=== PATIENT | male | born 1970 | race Caucasian/White ===

== ENCOUNTER 2019-01-27 12:33 | Emergency (ER) | payer OTHER ==
[~2019-01-27] VITALS: Ht 180.3 cm; Wt 113.4 kg
[~2019-01-27 12:33] MED LIST: BUSP10TA PO; HYDR-3164 PO; MIRT30TA PO; NAPR-514 PO; NAPR500T8 PO; OLAN10TA3 PO; ONDA4TAB7 PO; OXYC1TAB15 PO
[2019-01-27] MEDS ORDERED: fentaNYL PF VIAL 100 MCG/2 ML VIAL IV PRN (13:15)
--- NOTE | 2019-01-27 13:33 | RAD ---
Single view of the chest. 01/27/2019 1:15 PM Indication: Lower extremity edema Comparison: None Findings: Heart size is normal. No pneumothorax or pleural effusion is seen. No definitive focal consolidative infiltrate is seen. No overt edema is identified. Bony thorax is grossly intact. IMPRESSION: No radiographic evidence of acute cardiopulmonary process. Electronically signed by: Timothy Gong MD (01/27/2019 1:31 PM) [id number]
[2019-01-27 13:49] LABS: BASO # 0.1 x10^3/uL (0.0-0.2); BASO % 1 % (0-3); EOS # 0.3 x10^3/uL (0.0-0.7); EOS % 8 % (0-3); HEMATOCRIT 42.4 % (39.0-53.0); HEMOGLOBIN 14.9 g/dL (13.0-17.5); LYMPH # 1.5 x10^3/uL (1.0-4.8); LYMPH % 37 % (24-48); MEAN CORPUSCULAR HEMOGLOBIN 33 pg (25-35); MEAN CORPUSCULAR HGB CONC 35 g/dL (31-37); MEAN CORPUSCULAR VOLUME 95 fL (79-100); MONO # 0.3 x10^3/uL (0.0-1.1); MONO % 8 % (0-9); NEUT # 1.9 x10^3/uL (1.8-7.7); NEUT % 46 % (31-73); PLATELET COUNT 92 x10^3/uL (140-400); RED BLOOD COUNT 4.45 x10^6/uL (4.30-5.70); RED CELL DISTRIBUTION WIDTH 13.3 % (11.5-14.5); WHITE BLOOD COUNT 4.1 x10^3/uL (4.0-11.0)
[2019-01-27 13:57] LABS: CALCIUM 8.9 mg/dL (8.5-10.1); CREATININE 0.9 mg/dL (0.7-1.3); GFR 90.1; POTASSIUM 4.3 mmol/L (3.5-5.1)
[2019-01-27 14:03] LABS: ALBUMIN 3.6 g/dL (3.4-5.0); ALBUMIN/GLOBULIN RATIO 0.9 (1.0-1.7); MAGNESIUM 1.8 mg/dL (1.8-2.4); TOTAL PROTEIN 7.5 g/dL (6.4-8.2)
[2019-01-27] MEDS ORDERED: IOHEXOL 300 MG/ML 100ML VIAL. IV ONE (14:15)
[2019-01-27] MEDS ORDERED: CONTRAST GIVEN. MC PRN (14:15)
--- NOTE | 2019-01-27 14:20 | EKG ---
[facility] [address] [place] [address] Test Date: 2019-01-27 Test Time: 13:30:33 Pat Name: SONDRA COLON Department: Room: Gender: M Emd Teacher: : 1970 Requested By: RAMESH MESSINA Order Number: [id number] Reading MD: Measurements Intervals [place] Rate: 76 P: 38 VA: 174 QRS: -27 QRSD: 102 T: 17 QT: 390 QTc: 443 Interpretive Statements SINUS RHYTHM LEFTWARD AXIS NO SPECIFIC ECG ABNORMALITIES RI6.01 Unconfirmed report No previous ECG available for comparison
[2019-01-27 14:21] LABS: CREATINE KINASE 52 U/L (39-308)
--- NOTE | 2019-01-27 15:12 | RAD ---
Examination: CT ABD PELV W/ IV CONTRST ONLY History: Abdominal distention, liver disease Comparison/Correlation: 04/08/2016 CT abdomen and pelvis without contrast Findings: Axial images of the abdomen and pelvis were obtained following IV contrast. Sagittal and coronal reformatted images were provided. Bibasilar linear atelectasis is present. Nodular contour of the liver is present. Splenic length is 17.3 cm. Contrast noted within an umbilical vein. Minimal epigastric level varices. Pancreas is unremarkable. Adrenal glands are normal. Kidneys are unremarkable. Gallbladder fossa is unremarkable. Suture material is evident about cecum. Appendix is not seen. No bowel obstruction. No enlarged abdominal or pelvic lymph nodes. No ascites or pelvic free fluid. Urinary bladder is unremarkable. Transitional L5 vertebra is present. Impression: Hepatic cirrhosis and associated findings of portal hypertension including splenomegaly, recanalized umbilical vein, and epigastric level varices. PQRS Compliance Statement: One or more of the following individualized dose reduction techniques were utilized for this examination: 1. Automated exposure control 2. Adjustment of the mA and/or kV according to patient size 3. Use of iterative reconstruction technique Electronically signed by: Gerber Gregg MD (01/27/2019 3:09 PM) [facility]
[2019-01-27] MEDS ORDERED: MORPHINE SULFATE 4 MG/ML VIAL. IV ONE ×2 (15:15→17:15)
[2019-01-27 17:23] LABS: PROTHROMBIN TIME PATIENT 13.4 SEC (11.7-14.0)
[2019-01-27 17:23] LABS: BILIRUBIN,URINE NEGATIVE (NEG); CLARITY,URINE CLEAR; COLOR,URINE YELLOW; NITRITE,URINE NEGATIVE (NEG); PROTEIN,URINE NEGATIVE (NEG-TRACE)
[2019-01-27 17:31] LABS: AMPHETAMINE/METHAMPHETAMINE NEG (NEG); BARBITURATES NEG (NEG); BENZODIAZEPINES NEG (NEG); CANNABINOIDS NEG (NEG); COCAINE NEG (NEG); METHADONE NEG (NEG); OPIATES POS (NEG); PHENCYCLIDINE NEG (NEG)
[2019-01-27 17:33] LABS: BACTERIA,URINE 0 /HPF (0-FEW); SQUAMOUS EPITHELIAL CELL,UR FEW /LPF
[2019-01-27 17:59] VITALS: BP 114/59
[2019-01-27] MEDS ORDERED: LACTULOSE 20 GM/30 ML SOLUTION. PO STA (18:00)
--- NOTE | 2019-01-27 18:00 | PHYS DOC ---
Past Medical History Past Medical History: Bipolar, Liver Disease, Schizophrenia, Other Additional Past Medical Histor: PTDS, Hep C (RAMESH MESSINA APRN) Past Surgical History: Appendectomy (RAMESH MESSINA APRN) Alcohol Use: Sober Drug Use: Heroin Social History Narrative: pt reports hx/o heroin use "a long time ago" (RAMESH MESSINA APRN) Adult General Chief Complaint Chief Complaint: LOWER EXTREMITY SWELLING HPI HPI Patient is a 48 year old male with history of bipolar, schizophrenia, stage IV liver cirrhosis, who presents to the ED today complaining of 7 out of 10 bilateral lower abdominal pain, abdominal distention bilateral lower extremity swelling, patient states this a chronic symptoms but he believes they've gotten worse in the last 2 days. He states he recently moved here from [place] and does not have a specialist to follow-up with. He also mentions his some sort of house arrest. Patient denies any nausea, vomiting, denies any chest pain or shortness of breath. (RAMESH MESSINA APRN) Review of Systems Review of Systems Constitutional: Denies fever or chills [] Eyes: Denies change in visual acuity, redness, or eye pain [] HENT: Denies nasal congestion or sore throat [] Respiratory: Denies cough or shortness of breath [] Cardiovascular: No additional information not addressed in HPI [] GI: Reports abdominal pain, abdominal distention, denies nausea, vomiting, bloody stools or diarrhea [] : Denies dysuria or hematuria [] Musculoskeletal: Reports bilateral lower extremity swelling. Denies back pain or joint pain [] Integument: Denies rash or skin lesions [] Neurologic: Denies headache, focal weakness or sensory changes [] All other systems were reviewed and found to be within normal limits, except as documented in this note. (RAMESH MESSINA APRN) Current Medications Current Medications Current Medications Medications (Trade) Dose Ordered Sig/Valeriano Start Time Stop Time Status Last Admin Dose Admin Fentanyl Citrate (Fentanyl 2ml Vial) 50 mcg PRN Q15MIN PRN 01/27/19 13:15 01/27/19 18:31 DC 01/27/19 13:55 50 MCG Info (CONTRAST GIVEN -- Rx MONITORING) 1 each PRN DAILY PRN 01/27/19 14:15 01/27/19 18:31 DC Iohexol (Omnipaque 300 Mg/ml) 75 ml 1X ONCE 01/27/19 14:15 01/27/19 14:16 DC 01/27/19 14:56 75 ML Lactulose (Lactulose) 20 gm 1X STAT 01/27/19 18:00 01/27/19 18:02 DC 01/27/19 18:20 20 GM Morphine Sulfate (Morphine Sulfate) 4 mg 1X ONCE 01/27/19 17:15 01/27/19 17:16 DC 01/27/19 17:28 4 MG (RYAN JENNINGS MD) Allergies Allergies Allergies Coded Allergies Type Severity Reaction Last Updated Verified Penicillins Allergy Intermediate unknown 02/18/15 Yes (RYNA JENNINGS MD) Physical Exam Physical Exam Constitutional: Well developed, well nourished, no acute distress, non-toxic appearance. [] HENT: Normocephalic, atraumatic, bilateral external ears normal, oropharynx moist, no oral exudates, nose normal. [] Eyes: PERRLA, EOMI, conjunctiva normal, no discharge. [] Neck: Normal range of motion, no tenderness, supple, no stridor. [] Cardiovascular:Heart rate regular rhythm, no murmur [] Lungs & Thorax: Bilateral breath sounds clear to auscultation [] Abdomen: Rounded abdomen. Bowel sounds normal, soft, diffuse tenderness throughout the abdomen, no point tenderness to the right upper quadrant or right lower quadrant, no masses, no pulsatile masses. [] Skin: Warm, dry, no erythema, no rash. [] Back: No tenderness, no CVA tenderness. [] Extremities: No tenderness, no cyanosis, no clubbing, ROM intact, +2 bilateral pedal edema,police ankle bracelet noted on the left Neurologic: Alert and oriented X 3, normal motor function, normal sensory function, no focal deficits noted. [] Psychologic: Affect normal, judgement normal, mood normal. [] (RAMESH MESSINA APRN) Current Patient Data Vital Signs Vital Signs Date Time Temp Pulse Resp B/P (MAP) Pulse Ox O2 Delivery O2 Flow Rate FiO2 01/27/19 17:59 74 14 114/59 (77) 95 Room Air 01/27/19 13:10 97.9 97.9 (RYAN JENNINGS MD) Lab Values Laboratory Tests Test 01/27/19 13:30 01/27/19 17:10 White Blood Count 4.1 x10^3/uL (4.0-11.0) Red Blood Count 4.45 x10^6/uL (4.30-5.70) Hemoglobin 14.9 g/dL (13.0-17.5) Hematocrit 42.4 % (39.0-53.0) Mean Corpuscular Volume 95 fL (79-100) Mean Corpuscular Hemoglobin 33 pg (25-35) Mean Corpuscular Hemoglobin Concent 35 g/dL (31-37) Red Cell Distribution Width 13.3 % (11.5-14.5) Platelet Count 92 x10^3/uL (140-400) L Neutrophils (%) (Auto) 46 % (31-73) Lymphocytes (%) (Auto) 37 % (24-48) Monocytes (%) (Auto) 8 % (0-9) Eosinophils (%) (Auto) 8 % (0-3) H Basophils (%) (Auto) 1 % (0-3) Neutrophils # (Auto) 1.9 x10^3/uL (1.8-7.7) Lymphocytes # (Auto) 1.5 x10^3/uL (1.0-4.8) Monocytes # (Auto) 0.3 x10^3/uL (0.0-1.1) Eosinophils # (Auto) 0.3 x10^3/uL (0.0-0.7) Basophils # (Auto) 0.1 x10^3/uL (0.0-0.2) Prothrombin Time 13.4 SEC (11.7-14.0) Prothrombin Time INR 1.1 (0.8-1.1) Sodium Level 143 mmol/L (136-145) Potassium Level 4.3 mmol/L (3.5-5.1) Chloride Level 108 mmol/L (98-107) H Carbon Dioxide Level 26 mmol/L (21-32) Anion Gap 9 (6-14) Blood Urea Nitrogen 18 mg/dL (8-26) Creatinine 0.9 mg/dL (0.7-1.3) Estimated GFR (Cockcroft-Gault) 90.1 BUN/Creatinine Ratio 20 (6-20) Glucose Level 98 mg/dL (70-99) Calcium Level 8.9 mg/dL (8.5-10.1) Magnesium Level 1.8 mg/dL (1.8-2.4) Total Bilirubin 1.0 mg/dL (0.2-1.0) Aspartate Amino Transferase (AST) 76 U/L (15-37) H Alanine Aminotransferase (ALT) 111 U/L (16-63) H Alkaline Phosphatase 142 U/L (46-116) H Ammonia 38 mcmol/L (11-34) H Creatine Kinase 52 U/L (39-308) Creatine Kinase MB (Mass) < 0.5 ng/mL (0.0-3.6) Creatine Kinase MB Relative Index % (0-4) Troponin I Quantitative < 0.017 ng/mL (0.000-0.055) TP-Dge-F-Type Natriuretic Peptide 31 pg/mL (0-124) Total Protein 7.5 g/dL (6.4-8.2) Albumin 3.6 g/dL (3.4-5.0) Albumin/Globulin Ratio 0.9 (1.0-1.7) L Lipase 503 U/L (73-393) H Ethyl Alcohol Level < 10 mg/dL (0-10) Urine Collection Type Unknown Urine Color Yellow Urine Clarity Clear Urine pH 6.0 Urine Specific [place] >=1.030 Urine Protein Negative mg/dL (NEG-TRACE) Urine Glucose (UA) Negative mg/dL (NEG) Urine Ketones (Stick) Negative mg/dL (NEG) Urine Blood Negative (NEG) Urine Nitrite Negative (NEG) Urine Bilirubin Negative (NEG) Urine Urobilinogen Dipstick 1.0 mg/dL (0.2 mg/dL) Urine Leukocyte Esterase Negative (NEG) Urine RBC 1-2 /HPF (0-2) Urine WBC 1-4 /HPF (0-4) Urine Squamous Epithelial Cells Few /LPF Urine Bacteria 0 /HPF (0-FEW) Urine Mucus Mod /LPF Urine Opiates Screen Pos (NEG) Urine Methadone Screen Neg (NEG) Urine Barbiturates Neg (NEG) Urine Phencyclidine Screen Neg (NEG) Urine Amphetamine/Methamphetamine Neg (NEG) Urine Benzodiazepines Screen Neg (NEG) Urine Cocaine Screen Neg (NEG) Urine Cannabinoids Screen Neg (NEG) Urine Ethyl Alcohol Neg (NEG) Laboratory Tests 01/27/19 13:30 Laboratory Tests 01/27/19 13:30 (RYAN JENNINGS MD) EKG EKG [address] Marroquin sinus rhythm HR 76 no STEMI[] (RAMESH MESSINA APRN) Radiology/Procedures Radiology/Procedures []PROCEDURE: CT ABD PELV W/ IV CONTRST ONLY Examination: CT ABD PELV W/ IV CONTRST ONLY History: Abdominal distention, liver disease Comparison/Correlation: 04/08/2016 CT abdomen and pelvis without contrast Findings: Axial images of the abdomen and pelvis were obtained following IV contrast. Sagittal and coronal reformatted images were provided. Bibasilar linear atelectasis is present. Nodular contour of the liver is present. Splenic length is 17.3 cm. Contrast noted within an umbilical vein. Minimal epigastric level varices. Pancreas is unremarkable. Adrenal glands are normal. Kidneys are unremarkable. Gallbladder fossa is unremarkable. Suture material is evident about cecum. Appendix is not seen. No bowel obstruction. No enlarged abdominal or pelvic lymph nodes. No ascites or pelvic free fluid. Urinary bladder is unremarkable. Transitional L5 vertebra is present. Impression: Hepatic cirrhosis and associated findings of portal hypertension including splenomegaly, recanalized umbilical vein, and epigastric level varices. PQRS Compliance Statement: One or more of the following individualized dose reduction techniques were utilized for this examination: 1. Automated exposure control 2. Adjustment of the mA and/or kV according to patient size 3. Use of iterative reconstruction technique Electronically signed by: Gerber Sanchez MD (01/27/2019 3:09 PM) [facility] DICTATED and SIGNED BY: GERBER SANCHEZ MD DATE: 01/27/19 1509 (RAMESH MESSINA APRN) Course & Med Decision Making Course & Med Decision Making Pertinent Labs and Imaging studies reviewed. (See chart for details) This is a 48-year-old male patient with history of stage IV liver cirrhosis who presents to the ED today complaining of abdominal pain and bilateral lower extr emity swelling that is chronic but he believes got worse in the last 2 days. CBC with a normal WBC, CMP with AST of 76, ALT 111, ammonia 38-given lactulose, lipase 503. INR is normal. CT of the abdomen and pelvic-Hepatic cirrhosis and associated findings of portal hypertension including splenomegaly, recanalized umbilical vein, and epigastric level varices. spoke with Dr. Mendez who requested we discharge patient to home and have him follow-up with Dr. Cheryl Lou as a PCP as well as Dr. Sandeep WILLIS (RAMESH MESSINA APRN) Course & Med Decision Making I was not involved in the care of this patient before 1800. (RYAN JENNINGS MD) Dragon Disclaimer Dragon Disclaimer This electronic medical record was generated, in whole or in part, using a voice recognition dictation system. (RAMESH MESSINA APRN) Departure Departure Impression: Primary Impression: Liver cirrhosis Disposition: HOME, SELF-CARE Condition: STABLE Referrals: NO PCP (PCP) ISAIAH COLLAZO MD follow up as soon as you can SABA PIERRE MD follow up as soon as you can Patient Instructions: Cirrhosis Additional Instructions: You were evaluated in the emergency room for abdominal pain with liver cirrhosis we provided you a primary care doctor as well as a GI doctor please call them and follow-up with them as soon as possible. Problem Qualifiers Primary Impression: Liver cirrhosis Hepatic cirrhosis type: other cirrhosis Qualified Codes: K74.69 - Other cirrhosis of liver RAMESH MESSINA APRN Jan 27, 2019 18:00 RYAN JENNINGS MD Jan 27, 2019 20:08
== END 2019-01-27 18:25 | disposition home or self-care (01) ==
LOC: ER 12:33
DX: K74.69 Other cirrhosis of liver (principal); F31.9 Bipolar disorder, unspecified; F20.9 Schizophrenia, unspecified; Z90.89 Acquired absence of other organs; Z88.0 Allergy status to penicillin
CPT/HCPCS: 36415; 71045; 74177; 80053; 80307; 81001; 82140; 82553; 83690; 83735; 83880; 84484; 85025; 85610; 93005; 96374; 96375; 96376; 99285; G0480; J2270; J3010; Q9967

== ENCOUNTER 2019-11-18 14:02 | Inpatient (IN) | payer OTHER, SELFPAY ==
[~2019-11-18] VITALS: Ht 180.3 cm; Wt 99.7 kg
--- NOTE | 2019-11-18 14:49 | EKG ---
[facility] [address] [place] [address] Test Date: 2019-11-18 Test Time: 14:36:12 Pat Name: SONDRA COLON Department: Room: Gender: M Training Engineer: : 1970 Requested By: LEONA WALTERS Order Number: [id number] Reading MD: Omid Ibrahim MD Measurements Intervals [place] Rate: 91 P: 27 CA: 158 QRS: -25 QRSD: 98 T: 17 QT: 372 QTc: 459 Interpretive Statements SINUS RHYTHM Electronically Signed On 11-18-2019 15:02:04 CDT by Omid Ibrahim MD
[2019-11-18 14:52] LABS: BASO % 1 % (0-3); EOS # 0.1 x10^3/uL (0.0-0.7); EOS % 3 % (0-3); HEMATOCRIT 43.4 % (39.0-53.0); HEMOGLOBIN 14.8 g/dL (13.0-17.5); LYMPH % 31 % (24-48); MEAN CORPUSCULAR HEMOGLOBIN 34 pg (25-35); MEAN CORPUSCULAR HGB CONC 34 g/dL (31-37); MEAN CORPUSCULAR VOLUME 98 fL (79-100); MONO # 0.4 x10^3/uL (0.0-1.1); MONO % 11 % (0-9); NEUT # 1.8 x10^3/uL (1.8-7.7); NEUT % 54 % (31-73); PLATELET COUNT 80 x10^3/uL (140-400); RED BLOOD COUNT 4.42 x10^6/uL (4.30-5.70); RED CELL DISTRIBUTION WIDTH 15.2 % (11.5-14.5); WHITE BLOOD COUNT 3.3 x10^3/uL (4.0-11.0)
[2019-11-18 14:58] LABS: CALCIUM 8.8 mg/dL (8.5-10.1); CREATININE 0.8 mg/dL (0.7-1.3); GFR 102.7; POTASSIUM 3.8 mmol/L (3.5-5.1)
[2019-11-18 15:04] LABS: ACETAMIN < 2 mcg/ml (10-30); ETHANOL < 10 mg/dL (0-10)
[2019-11-18 15:06] LABS: BARBITURATES NEG (NEG); BENZODIAZEPINES NEG (NEG); CANNABINOIDS POS (NEG); COCAINE NEG (NEG); METHADONE NEG (NEG); OPIATES NEG (NEG); PHENCYCLIDINE NEG (NEG)
[2019-11-18 15:09] LABS: ALBUMIN 3.4 g/dL (3.4-5.0); ALBUMIN/GLOBULIN RATIO 0.9 (1.0-1.7); MAGNESIUM 1.7 mg/dL (1.8-2.4); TOTAL BILIRUBIN 0.8 mg/dL (0.2-1.0); TOTAL PROTEIN 7.1 g/dL (6.4-8.2)
[2019-11-18 15:13] LABS: AMPHETAMINE/METHAMPHETAMINE NEG (NEG)
--- NOTE | 2019-11-18 15:42 | RAD ---
WRIST 3V LEFT DATE: 11/18/2019 3:20 PM INDICATION: Reason: left wrist pain, fell off bed of truck, already splinted / Spl. Instructions: / History: COMPARISON: None. FINDINGS: Bones: Acute impacted distal radius fracture with dorsal angulation. Acute mildly displaced ulnar styloid fracture. Joints: The joint spaces are normal. Miscellaneous: Soft tissue swelling is present. IMPRESSION: Acute distal radius and ulnar styloid fractures. Electronically signed by: Da Barclay MD (11/18/2019 3:39 PM) [id number]
--- NOTE | 2019-11-18 16:20 | PHYS DOC ---
Past Medical History Past Medical History: Bipolar, Liver Disease, Schizophrenia, Other Additional Past Medical Histor: PTSD, Hep C Past Surgical History: Appendectomy Smoking Status: Current Some Day Smoker Alcohol Use: Sober Drug Use: Heroin Adult General Chief Complaint Chief Complaint: SUICDAL IDEATION HPI HPI Patient is a 49 year old male with history of chronic psychosis and polysubstance abuse who presents with multiple medical complaints. Patient is requesting reevaluation of left hand splint. Patient reports injury with left wrist fracture 1 week ago while visiting [place]. Patient reports continued left wrist pain and swelling. Denies weakness or numbness of left hand. No chest pain or shortness of breath. Patient also reports chronic hallucinations and suicidal ideation. Patient denies active plans at this time. Denies command hallucinations. No HI, paranoia or delusions. No other acute symptoms or complaints. Patient is currently homeless and living outdoors. Reports recent marijuana use while in [place]. [] Review of Systems Review of Systems ROS as per HPI All other systems were reviewed and found to be within normal limits, except as documented in this note. Current Medications Current Medications Current Medications Medications (Trade) Dose Ordered Sig/Valeriano Start Time Stop Time Status Last Admin Dose Admin Acetaminophen/ Hydrocodone Bitart (Lortab 5/325) 1 tab 1X ONCE 11/18/19 17:15 11/18/19 17:16 DC 11/18/19 17:22 1 TAB Allergies Allergies Allergies Coded Allergies Type Severity Reaction Last Updated Verified Penicillins Allergy Intermediate unknown 02/18/15 Yes Physical Exam Physical Exam Constitutional: Well developed, well nourished, no acute distress, non-toxic appearance. [] HENT: Normocephalic, atraumatic, bilateral external ears normal, oropharynx moist, nose normal. [] Eyes: PERRLA, EOMI, conjunctiva normal, no discharge. [] Neck: Normal range of motion, no tenderness, supple, no stridor. [] Cardiovascular:Heart rate regular rhythm, no murmur [] Lungs & Thorax: Bilateral breath sounds clear to auscultation [] Extremities: Left forearm, loosely fitting sugar tong splint with minimal swelling of hand, good cap refill, motor function intact. [] Neurologic: Alert and oriented X 3, normal motor function, normal sensory fun ction, no focal deficits noted. [] Psychologic: Affect normal, judgement normal, mood normal. [] Current Patient Data Vital Signs Vital Signs Date Time Temp Pulse Resp B/P (MAP) Pulse Ox O2 Delivery O2 Flow Rate FiO2 11/18/19 17:22 Room Air 11/18/19 14:06 97.9 88 18 148/82 (104) 100 97.9 Lab Values Laboratory Tests Test 11/18/19 14:40 11/18/19 14:46 White Blood Count 3.3 x10^3/uL (4.0-11.0) L Red Blood Count 4.42 x10^6/uL (4.30-5.70) Hemoglobin 14.8 g/dL (13.0-17.5) Hematocrit 43.4 % (39.0-53.0) Mean Corpuscular Volume 98 fL (79-100) Mean Corpuscular Hemoglobin 34 pg (25-35) Mean Corpuscular Hemoglobin Concent 34 g/dL (31-37) Red Cell Distribution Width 15.2 % (11.5-14.5) H Platelet Count 80 x10^3/uL (140-400) L Neutrophils (%) (Auto) 54 % (31-73) Lymphocytes (%) (Auto) 31 % (24-48) Monocytes (%) (Auto) 11 % (0-9) H Eosinophils (%) (Auto) 3 % (0-3) Basophils (%) (Auto) 1 % (0-3) Neutrophils # (Auto) 1.8 x10^3/uL (1.8-7.7) Lymphocytes # (Auto) 1.0 x10^3/uL (1.0-4.8) Monocytes # (Auto) 0.4 x10^3/uL (0.0-1.1) Eosinophils # (Auto) 0.1 x10^3/uL (0.0-0.7) Basophils # (Auto) 0.0 x10^3/uL (0.0-0.2) Sodium Level 146 mmol/L (136-145) H Potassium Level 3.8 mmol/L (3.5-5.1) Chloride Level 108 mmol/L (98-107) H Carbon Dioxide Level 31 mmol/L (21-32) Anion Gap 7 (6-14) Blood Urea Nitrogen 8 mg/dL (8-26) Creatinine 0.8 mg/dL (0.7-1.3) Estimated GFR (Cockcroft-Gault) 102.7 BUN/Creatinine Ratio 10 (6-20) Glucose Level 112 mg/dL (70-99) H Calcium Level 8.8 mg/dL (8.5-10.1) Magnesium Level 1.7 mg/dL (1.8-2.4) L Total Bilirubin 0.8 mg/dL (0.2-1.0) Aspartate Amino Transferase (AST) 44 U/L (15-37) H Alanine Aminotransferase (ALT) 48 U/L (16-63) Alkaline Phosphatase 145 U/L (46-116) H Total Protein 7.1 g/dL (6.4-8.2) Albumin 3.4 g/dL (3.4-5.0) Albumin/Globulin Ratio 0.9 (1.0-1.7) L Acetaminophen Level < 2 mcg/ml (10-30) L Acetaminophen Last Dose Date Unk Acetaminophen Last Dose Time Unk Ethyl Alcohol Level < 10 mg/dL (0-10) Urine Opiates Screen Neg (NEG) Urine Methadone Screen Neg (NEG) Urine Barbiturates Neg (NEG) Urine Phencyclidine Screen Neg (NEG) Urine Amphetamine/Methamphetamine Neg (NEG) Urine Benzodiazepines Screen Neg (NEG) Urine Cocaine Screen Neg (NEG) Urine Cannabinoids Screen Pos (NEG) Urine Ethyl Alcohol Neg (NEG) Laboratory Tests 11/18/19 14:40 Laboratory Tests 11/18/19 14:40 EKG EKG EKG: reviewed[] Radiology/Procedures Radiology/Procedures XR left hand: Distal radial and ulnar fractures per radiology report.[] Course & Med Decision Making Course & Med Decision Making Pertinent Labs and Imaging studies reviewed. (See chart for details) Wrist adequately splinted with wrist pain due to continued wrist/hand use. PAT counselor consulted. Care endorsed to oncoming [facility] at 18:00.] Dragon Disclaimer Dragon Disclaimer This electronic medical record was generated, in whole or in part, using a voice recognition dictation system. Departure Departure Impression: Primary Impression: Left wrist pain Additional Impression: Chronic psychosis Disposition: HOME, SELF-CARE Condition: STABLE Referrals: NO PCP (PCP) Problem Qualifiers LEONA WALTERS DO November 18, 2019 16:19
[2019-11-18] MEDS ORDERED: HYDROcodone/APAP 5/325MG 1 TAB TABLET PO ONE (17:15)
[2019-11-18] MEDS ORDERED: ACETAMINOPHEN 325 MG TABLET. PO PRN (18:30)
[2019-11-18 21:00] VITALS: BP 128/76
[2019-11-18] MEDS ORDERED: HYDROcodone/APAP 5/325MG 1 TAB TABLET PO PRN (21:45)
[2019-11-18] MEDS ORDERED: MORPHINE SULFATE 4 MG/ML VIAL. IV PRN (21:45)
[2019-11-18 22:00] VITALS: BP_SYST 128; BP_SYST 129; BP_DIAS 76
[2019-11-18] MEDS: MORPHINE SULFATE 2 MG/ML VIAL. IV PRN (22:04)
[2019-11-18] MEDS ORDERED: CLON1TAB PO (22:23)
[2019-11-18] MEDS ORDERED: QUET400T4 PO (22:23)
[2019-11-18 23:00] VITALS: BP 111/76
[2019-11-19] VITALS (15 sets, daily range): BP systolic 95–138; BP diastolic 58–84
[2019-11-19] MEDS: MORPHINE SULFATE 2 MG/ML VIAL. IV PRN ×5 (01:30→15:23)
--- NOTE | 2019-11-19 07:09 | NUR ---
IP: Pt is COVID negative.
--- NOTE | 2019-11-19 09:09 | SNU/HH DC ---
DISCHARGE ORDERS DISCHARGE INFORMATION: FINAL DIAGNOSIS Problems Medical Problems: (1) Chronic psychosis Status: Acute (2) Left wrist pain Status: Acute CONDITION ON DISCHARGE: Stable CODE STATUS: Code Status: Full CARE HOME: SNF STAY <30 DAYS: No HOSPICE: HOSPICE: No HOSPICE EVAL & TREAT: No LTAC: ADMIT TO LTAC: No POST DISCHARGE ORDERS: ACTIVITY ORDERS: Resume previous activity DIET AFTER DISCHARGE: Cardiac DISCHARGE MEDICATIONS: Home Meds Active Scripts Naproxen (NAPROXEN) 500 Mg Tablet.dr, 1 TAB PO BID, #60 TAB 2 Refills Prov:RAMESH MESSINA [employer] 06/17/16 Oxycodone/Apap 5-325 (PERCOCET 5-325 MG TABLET ) 1 Each Tablet, 1 TAB PO Q6HRS PRN for PAIN, #6 TAB Prov:RAMESH MESSINA [employer] 06/17/16 Hydrocodone/Apap 5-325 (NORCO 5-325 TABLET) 1 Each Tablet, 1 TAB PO PRN Q6HRS PRN for PAIN, #10 TAB Prov:ISAIAH ROY DO 06/05/16 Ondansetron Hcl (ZOFRAN) 4 Mg Tablet, 1 TAB PO Q8HRS PRN for NAUSEA, #20 TAB Prov:ARCELIA ANDERS DO 04/08/16 Hydrocodone/Apap 5-325 (NORCO 5-325 TABLET) 1 Each Tablet, 1 TAB PO PRN Q6HRS PRN for PAIN, #14 TAB Prov:ARCELIA ANDERS DO 04/08/16 Naproxen (NAPROXEN) 500 Mg Tablet, 1 TAB PO BID, #20 TAB 1 Refill Prov:ARCELIA ANDERS DO 11/24/15 Reported Medications Clonazepam (KLONOPIN) 1 Mg Tablet, 1 TAB PO TID PRN for ANXIETY / AGITATION, #90 TAB 1 Refill 11/18/19 Quetiapine Fumarate (SEROQUEL) 400 Mg Tablet, 1 TAB PO QHS for depressio/bipolar, #30 TAB 1 Refill 11/18/19 Olanzapine (ZYPREXA) 10 Mg Tablet, 10 MG PO DAILY, TAB 02/18/15 Buspirone Hcl (BUSPIRONE HCL) 10 Mg Tablet, 10 MG PO BID, TAB 02/18/15 Mirtazapine (REMERON) 30 Mg Tablet, 30 MG PO DAILY, TAB 02/18/15 JULIET HILL III DO November 19, 2019 09:09
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
--- NOTE | 2019-11-19 14:39 | NUR ---
Spoke to [place] at [facility] regarding patients acceptance. report to be called to [phone] with eta when known. Dr. Freeman is accepting and room will be 24A.
--- NOTE | 2019-11-19 15:13 | NUR ---
SS following up with discharge planning. Joe from PAT team met with pt for SI. Referral phoned and faxed to [facility]. Pt accepted at [facility] for psych. Report#[phone]. Room 24A. Accepting physician Dr. Saavedra. [facility] transport contacted and transport scheduled for 1530. Pt's RN notified. Packet and [facility] form on chart.
--- NOTE | 2019-11-19 16:58 | NUR ---
REPORT CALLED TO [phone] ON THE PT AT APPROX 1530 FOR ETA AFTER 1700 IN [place].
--- NOTE | 2019-11-19 17:03 | NUR ---
PT LEFT VIA [facility] AT APPROX 1600 AND SECURITY RETURNED PTS BELONGINGS PRIOR TO DISCHARGE.
--- NOTE | 2019-11-20 13:49 | DS ---
DATE OF DISCHARGE: 11/19/2019 ADMISSION DIAGNOSIS: Suicidal ideation. DISCHARGE DIAGNOSIS: Resolving suicidal ideation. HOSPITAL COURSE: The patient is a pleasant 49-year-old male, who presented with suicidal ideation. We observed him for a day or two due to COVID test and then discharged to Inpatient Psych. DISPOSITION: Inpatient Psych. ACTIVITY: As tolerated. DIET: Low sodium. MEDICATIONS: Please see the MRAD. TOTAL TIME: 32 minutes. JULIET HILL DO DR: FATOU/corinne JOB#: [id number] / [id number]
== END 2019-11-19 16:00 | DRG 556 ==
LOC: ER 14:02 → ED HOLD 18:20 → 1 WEST ICU 20:55
PROVIDERS: ADMIT Internal Medicine; ATTEND Internal Medicine
DX: M25.532 Pain in left wrist (principal); R45.851 Suicidal ideations; F29 Unspecified psychosis not due to a substance or known physiological condition; F31.9 Bipolar disorder, unspecified; F20.9 Schizophrenia, unspecified; F17.200 Nicotine dependence, unspecified, uncomplicated; F43.10 Post-traumatic stress disorder, unspecified; Z20.828 Contact with and (suspected) exposure to other viral communicable diseases; Z59.0 Homelessness; Z82.49 Family history of ischemic heart disease and other diseases of the circulatory system; Z90.49 Acquired absence of other specified parts of digestive tract
CPT/HCPCS: 29125; 36415; 73110; 80053; 80307; 80329; 83735; 85025; 93005; G0480; J2270; 99285-25; G0378; U0003-CS

== ENCOUNTER 2020-01-06 14:33 | Emergency (ER) | payer OTHER, SELFPAY ==
[~2020-01-06] VITALS: Ht 180.3 cm; Wt 106.3 kg
[~2020-01-06 14:33] MED LIST changes: +CLON1TAB PO; +QUET400T4 PO
[2020-01-06 15:02] VITALS: BP 135/74
--- NOTE | 2020-01-06 15:43 | RAD ---
EXAM: 1. PA and lateral views of the left hand 2. PA and lateral views of the left wrist DATE: 01/06/2020 3:11 PM INDICATION: Reason: LEFT HAND/WRIST INJURY / Spl. Instructions: / History: COMPARISON: 06/17/2016, 11/18/2019 FINDINGS/ IMPRESSION: 1. Progressively healing distal left radial fracture is stable in alignment with dorsal radial tilt. 2. Ulnar styloid avulsion fracture is unchanged. 3. No definite new fracture is seen. 4. Decreased bone mineral density. Electronically signed by: Cash De La Rosa MD (01/06/2020 3:40 PM) [id number]
[2020-01-06] MEDS ORDERED: oxyCODONE/APAP 5/325 1 TAB TABLET PO ONE (16:00)
[2020-01-06] MEDS ORDERED: HYDR-2759 PO (16:40)
--- NOTE | 2020-01-06 16:41 | PHYS DOC ---
Past Medical History Past Medical History: Bipolar, Liver Disease, Schizophrenia, Other Additional Past Medical Histor: PTSD, Hep C (BABAR MOLINA APRN) Past Surgical History: Appendectomy (BABAR MOLINA APRN) Smoking Status: Current Some Day Smoker Alcohol Use: Sober Drug Use: Heroin (BABAR MOLINA APRN) General Adult EDM: Chief Complaint: WRIST PAIN HPI: HPI: Patient is a 49 year old notes emergency department with complaints of left wrist pain for the last 2 weeks. He reports that 2 weeks ago he attempted doing handstand when he first injured it. He states again today he tripped when he was walking and fell onto his left hand trying to break his fall. He reports that his third through fifth digits feel tingly and reports limited range of motion of his wrist due to pain. Patient denies taking anything for pain prior to arrival. He currently rates his pain a 10 out of 10 on pain scale he denies any radiation of the pain, the pain is worse with palpation and movement. (BABAR MOLINA APRN) Review of Systems: Review of Systems: Complete ROS is negative unless otherwise stated in the HPI. (BABAR MOLINA APRN) Heart Score: Risk Factors: Risk Factors: DM, Current or recent (<one month) smoker, HTN, HLP, family history of CAD, obesity. Risk Scores: Score 0 - 3: 2.5% MACE over next 6 weeks - Discharge Home Score 4 - 6: 20.3% MACE over next 6 weeks - Admit for Clinical Observation Score 7 - 10: 72.7% MACE over next 6 weeks - Early Invasive Strategies (BABAR MOLINA APRN) Current Medications: Current Medications Medications (Trade) Dose Ordered Sig/Valeriano Start Time Stop Time Status Last Admin Dose Admin Oxycodone/ Acetaminophen (Percocet 5/325) 1 tab 1X ONCE 01/06/20 16:00 01/06/20 16:01 DC 01/06/20 15:55 1 TAB (BABAR MOLINA APRN) Allergies: Allergies: Allergies Coded Allergies Type Severity Reaction Last Updated Verified Penicillins Allergy Intermediate unknown 02/18/15 Yes (BABAR MOLINA APRN) Physical Exam: PE: Constitutional: Well developed, well nourished, no acute distress, non-toxic appearance. [] HENT: Normocephalic, atraumatic, bilateral external ears normal, nose normal. [] Eyes: PERRLA, EOMI, conjunctiva normal, no discharge. [] Neck: Normal range of motion, no stridor. [] Cardiovascular:Heart rate regular rhythm Lungs & Thorax: Respirations even and unlabored, no retractions, no respiratory distress Skin: Warm, dry, no erythema, no rash. [] Extremities: L wrist: diffuse TTP, no crepitus, no obvious deformity, no cyanosis, ROM intact, 1+ edema. [] Neurologic: Alert and oriented X 3, no focal deficits noted. [] Psychologic: Affect normal, judgement normal, mood normal. [] (BABAR MOLINA APRN) Current Patient Data: Vital Signs: Vital Signs Date Time Temp Pulse Resp B/P (MAP) Pulse Ox O2 Delivery O2 Flow Rate FiO2 01/06/20 15:02 97.9 87 16 135/74 (94) 96 Room Air 97.9 (BABAR MOLINA APRN) EKG: EKG: [] (BABAR MOLINA APRN) Radiology/Procedures: Radiology/Procedures: PROCEDURE: HAND LEFT 2V EXAM: 1. PA and lateral views of the left hand 2. PA and lateral views of the left wrist DATE: 01/06/2020 3:11 PM INDICATION: Reason: LEFT HAND/WRIST INJURY / Spl. Instructions: / History: COMPARISON: 06/17/2016, 11/18/2019 FINDINGS/ IMPRESSION: 1. Progressively healing distal left radial fracture is stable in alignment with dorsal radial tilt. 2. Ulnar styloid avulsion fracture is unchanged. 3. No definite new fracture is seen. 4. Decreased bone mineral density. [] (BABAR MOLINA APRN) Course & Med Decision Making: Course & Med Decision Making Pertinent Labs and Imaging studies reviewed. (See chart for details) [] (BABAR MOLINA APRN) Course & Med Decision Making Staff Physician Addendum: I was working in the ER during the course of this patient's visit. I was available for consultation as needed, but I was not directly involved in the care of this patient. (TRAVIS WYATT MDCale Grant Disclaimer: Juanita Disclaimer: This electronic medical record was generated, in whole or in part, using a voice recognition dictation system. (BABAR MOLINA APRN) Departure Departure Impression: Primary Impression: Distal radius fracture, right Qualified Codes: S52.501A - Unspecified fracture of the lower end of right radius, initial encounter for closed fracture Additional Impression: Displaced fracture of right ulna styloid process, initial encounter for closed fracture Disposition: HOME, SELF-CARE Condition: STABLE Referrals: SONDRA LIPSCOMB MD Patient Instructions: Wrist Fracture, [id number]-[id number] Additional Instructions: Fill prescription(s) and use as directed. Recommend application of ice, elevation, and rest of affected extremity. Wear the splint that was placed until follow up appointment with Dr. Lipscomb's office. Return to the ER if your symptoms worsen. Scripts Hydrocodone/Acetaminophen (Hydrocodone-Acetamin 5-325 mg) 1 Each Tablet 1 EACH PO Q6-8HRS PRN for PAIN for 5 Days, #20 TAB 0 Refills Prov: BABAR MOLINA APRN 01/06/20 Justicifation of Admission Dx: Justifications for Admission: Justification of Admission Dx: N/A (BABAR MOILNA APRN) Splinting Splinting : Location: left wrist Hand-Made Type: orthoglass Splint: sugar-tong Pre-Proc Neuro Vasc Exam: normal Post-Proc Neuro Vasc Exam: normal, unchanged from pre-exam (BABAR MOLINA APRN) BABAR MOLINA APRN Jan 06, 2020 16:41 TRAVIS WYATT MD Jan 07, 2020 18:26
== END 2020-01-06 16:49 | disposition home or self-care (01) ==
LOC: ER 14:33
DX: S52.502A Unspecified fracture of the lower end of left radius, initial encounter for closed fracture (principal); S52.611A Displaced fracture of right ulna styloid process, initial encounter for closed fracture; F20.9 Schizophrenia, unspecified; F31.9 Bipolar disorder, unspecified; F17.200 Nicotine dependence, unspecified, uncomplicated; Z90.89 Acquired absence of other organs; Z88.0 Allergy status to penicillin; W01.0XXA Fall on same level from slipping, tripping and stumbling without subsequent striking against object, initial encounter; Y93.89 Activity, other specified; Y92.89 Other specified places as the place of occurrence of the external cause; Y99.8 Other external cause status
CPT/HCPCS: 29125; 73100; 73120; 99284

== ENCOUNTER 2020-03-29 13:28 | Emergency (ER) | payer OTHER ==
[~2020-03-29] VITALS: Ht 175.3 cm; Wt 110.0 kg
[~2020-03-29 13:28] MED LIST changes: +HYDR-2759 PO
[2020-03-29 14:35] LABS: BILIRUBIN,URINE NEGATIVE (NEG); CLARITY,URINE CLEAR; COLOR,URINE YELLOW; NITRITE,URINE NEGATIVE (NEG); PH,URINE 6.5 (<5.0-8.0); PROTEIN,URINE NEGATIVE (NEG-TRACE)
[2020-03-29 14:36] LABS: BASO # 0.1 x10^3/uL (0.0-0.2); BASO % 1 % (0-3); EOS # 0.2 x10^3/uL (0.0-0.7); EOS % 4 % (0-3); HEMATOCRIT 42.3 % (39.0-53.0); HEMOGLOBIN 14.8 g/dL (13.0-17.5); LYMPH % 34 % (24-48); MEAN CORPUSCULAR HEMOGLOBIN 33 pg (25-35); MEAN CORPUSCULAR HGB CONC 35 g/dL (31-37); MEAN CORPUSCULAR VOLUME 93 fL (79-100); MONO # 0.6 x10^3/uL (0.0-1.1); MONO % 10 % (0-9); NEUT % 51 % (31-73); PLATELET COUNT 118 x10^3/uL (140-400); RED BLOOD COUNT 4.56 x10^6/uL (4.30-5.70); RED CELL DISTRIBUTION WIDTH 13.9 % (11.5-14.5); WHITE BLOOD COUNT 5.9 x10^3/uL (4.0-11.0)
[2020-03-29 14:40] LABS: BACTERIA,URINE 0 /HPF (0-FEW); RBC,URINE 0 /HPF (0-2); WBC,URINE 0 /HPF (0-4)
--- NOTE | 2020-03-29 14:40 | ED.ADGEN ---
Past Medical History Past Medical History: Bipolar, Liver Disease, Schizophrenia, Other Additional Past Medical Histor: PTSD, Hep C Past Surgical History: Appendectomy Smoking Status: Current Some Day Smoker Alcohol Use: Sober Drug Use: Heroin Adult General Chief Complaint Chief Complaint: SUICDAL IDEATION HPI HPI Patient is a 50 year old presents with suicidal ideation and depression. States he was previously on medication but does not have anymore. Has had to stay inpatient several times. States that the past few days has been hearing voices. Has a plan to kill himself by cutting his wrists, denies any attempted self-harm today or in the past. Review of Systems Review of Systems Constitutional: Denies fever or chills. [] Eyes: Denies change in visual acuity. [] HENT: Denies nasal congestion or sore throat. [] Respiratory: Denies cough or shortness of breath. [] Cardiovascular: Denies chest pain or edema. [] GI: Denies abdominal pain, nausea, vomiting, bloody stools or diarrhea. [] : Denies dysuria. [] Musculoskeletal: Denies back pain or joint pain. [] Integument: Denies rash. [] Neurologic: Denies headache, focal weakness or sensory changes. [] Endocrine: Denies polyuria or polydipsia. [] Lymphatic: Denies swollen glands. [] Psychiatric: Denies depression or anxiety. [] Allergies Allergies Allergies Coded Allergies Type Severity Reaction Last Updated Verified Penicillins Allergy Intermediate unknown 02/18/15 Yes Physical Exam Physical Exam Constitutional: Well developed, well nourished, no acute distress, non-toxic appearance. [] HENT: Normocephalic, atraumatic, bilateral external ears normal, oropharynx moist, no oral exudates, nose normal. [] Eyes: PERRLA, EOMI, conjunctiva normal, no discharge. [] Neck: Normal range of motion, no tenderness, supple, no stridor. [] Cardiovascular:Heart rate regular rhythm, no murmur [] Lungs & Thorax: Bilateral breath sounds clear to auscultation [] Abdomen: Bowel sounds normal, soft, no tenderness, no masses, no pulsatile masses. [] Skin: Warm, dry, no erythema, no rash. [] Back: No tenderness, no CVA tenderness. [] Extremities: No tenderness, no cyanosis, no clubbing, ROM intact, no edema. [] Neurologic: Alert and oriented X 3, normal motor function, normal sensory function, no focal deficits noted. [] Psychologic: Affect normal, judgement normal, mood normal. [] Current Patient Data Vital Signs Vital Signs Date Time Temp Pulse Resp B/P (MAP) Pulse Ox O2 Delivery O2 Flow Rate FiO2 03/29/20 17:41 77 22 103/62 (76) 95 Room Air 03/29/20 13:40 98.0 98.0 Lab Values Laboratory Tests Test 03/29/20 13:40 03/29/20 13:53 Urine Collection Type Unknown Urine Color Yellow Urine Clarity Clear Urine pH 6.5 (<5.0-8.0) Urine Specific Zap 1.015 (1.000-1.030) Urine Protein Negative mg/dL (NEG-TRACE) Urine Glucose (UA) Negative mg/dL (NEG) Urine Ketones (Stick) Negative mg/dL (NEG) Urine Blood Negative (NEG) Urine Nitrite Negative (NEG) Urine Bilirubin Negative (NEG) Urine Urobilinogen Dipstick 1.0 mg/dL (0.2 mg/dL) Urine Leukocyte Esterase Negative (NEG) Urine RBC 0 /HPF (0-2) Urine WBC 0 /HPF (0-4) Urine Squamous Epithelial Cells Occ /LPF Urine Bacteria 0 /HPF (0-FEW) Urine Opiates Screen Neg (NEG) Urine Methadone Screen Neg (NEG) Urine Barbiturates Neg (NEG) Urine Phencyclidine Screen Neg (NEG) Urine Amphetamine/Methamphetamine Neg (NEG) Urine Benzodiazepines Screen Neg (NEG) Urine Cocaine Screen Neg (NEG) Urine Cannabinoids Screen Neg (NEG) Urine Ethyl Alcohol Neg (NEG) White Blood Count 5.9 x10^3/uL (4.0-11.0) Red Blood Count 4.56 x10^6/uL (4.30-5.70) Hemoglobin 14.8 g/dL (13.0-17.5) Hematocrit 42.3 % (39.0-53.0) Mean Corpuscular Volume 93 fL (79-100) Mean Corpuscular Hemoglobin 33 pg (25-35) Mean Corpuscular Hemoglobin Concent 35 g/dL (31-37) Red Cell Distribution Width 13.9 % (11.5-14.5) Platelet Count 118 x10^3/uL (140-400) L Neutrophils (%) (Auto) 51 % (31-73) Lymphocytes (%) (Auto) 34 % (24-48) Monocytes (%) (Auto) 10 % (0-9) H Eosinophils (%) (Auto) 4 % (0-3) H Basophils (%) (Auto) 1 % (0-3) Neutrophils # (Auto) 3.0 x10^3/uL (1.8-7.7) Lymphocytes # (Auto) 2.0 x10^3/uL (1.0-4.8) Monocytes # (Auto) 0.6 x10^3/uL (0.0-1.1) Eosinophils # (Auto) 0.2 x10^3/uL (0.0-0.7) Basophils # (Auto) 0.1 x10^3/uL (0.0-0.2) Sodium Level 142 mmol/L (136-145) Potassium Level 4.0 mmol/L (3.5-5.1) Chloride Level 107 mmol/L (98-107) Carbon Dioxide Level 26 mmol/L (21-32) Anion Gap 9 (6-14) Blood Urea Nitrogen 10 mg/dL (8-26) Creatinine 0.8 mg/dL (0.7-1.3) Estimated GFR (Cockcroft-Gault) 102.3 Glucose Level 90 mg/dL (70-99) Calcium Level 8.5 mg/dL (8.5-10.1) Salicylates Level < 2.8 mg/dL (2.8-20.0) L Salicylate Last Dose Date Salicylate Last Dose Time Acetaminophen Level < 2 mcg/ml (10-30) L Acetaminophen Last Dose Date Acetaminophen Last Dose Time Ethyl Alcohol Level < 10 mg/dL (0-10) Laboratory Tests 03/29/20 13:53 Laboratory Tests 03/29/20 13:53 EKG EKG [] Radiology/Procedures Radiology/Procedures [] Course & Med Decision Making Course & Med Decision Making Pertinent Labs and Imaging studies reviewed. (See chart for details) [] Dragon Disclaimer Dragon Disclaimer This electronic medical record was generated, in whole or in part, using a voice recognition dictation system. Departure Departure Impression: Primary Impression: Suicidal ideation Disposition: 05 TRANSFER OTHER Referrals: NO PCP (PCP) JOCELYNN MORALES MD Mar 29, 2020 14:40
[2020-03-29 14:48] LABS: CALCIUM 8.5 mg/dL (8.5-10.1); CREATININE 0.8 mg/dL (0.7-1.3); GFR 102.3
[2020-03-29 14:49] LABS: ACETAMIN < 2 mcg/ml (10-30); ETHANOL < 10 mg/dL (0-10); SALIC < 2.8 mg/dL (2.8-20.0)
[2020-03-29 14:53] LABS: BARBITURATES NEG (NEG); BENZODIAZEPINES NEG (NEG); CANNABINOIDS NEG (NEG); COCAINE NEG (NEG); METHADONE NEG (NEG); OPIATES NEG (NEG); PHENCYCLIDINE NEG (NEG)
[2020-03-29 15:03] LABS: AMPHETAMINE/METHAMPHETAMINE NEG (NEG)
[2020-03-29 20:44] VITALS: BP 101/57
== END 2020-03-29 21:08 | disposition short-term general hospital (02) ==
LOC: ER 13:28
DX: R45.851 Suicidal ideations (principal); F32.9 Major depressive disorder, single episode, unspecified; F20.9 Schizophrenia, unspecified; Z90.89 Acquired absence of other organs; F17.200 Nicotine dependence, unspecified, uncomplicated; F43.10 Post-traumatic stress disorder, unspecified; Z88.0 Allergy status to penicillin
CPT/HCPCS: 36415; 80048; 80307; 80329; 81001; 85025; 99285; G0480